=== PATIENT | male | born 1970 | race Two or more races ===

== ENCOUNTER 2020-09-08 15:02 | Emergency (ER) | payer OTHER ==
[~2020-09-08] VITALS: Ht 165.1 cm; Wt 83.5 kg
== END 2020-09-09 01:18 | disposition home or self-care (01) ==
LOC: ER 15:02
DX: K52.1 Toxic gastroenteritis and colitis (principal); T36.8X5A Adverse effect of other systemic antibiotics, initial encounter; K57.92 Diverticulitis of intestine, part unspecified, without perforation or abscess without bleeding; Z03.818 Encounter for observation for suspected exposure to other biological agents ruled out

== ENCOUNTER 2020-11-30 00:10 | Inpatient (IN) | payer OTHER ==
[~2020-11-30] VITALS: Ht 170.2 cm; Wt 83.0 kg
== END 2020-12-03 14:25 | disposition home or self-care (01) | DRG 379 ==
LOC: ER 00:10 → SEC-K 09:32 → MEDI 12-01 13:01
PROVIDERS: ADMIT Internal Medicine; ATTEND Internal Medicine
DX: K57.33 Diverticulitis of large intestine without perforation or abscess with bleeding (principal); K52.9 Noninfective gastroenteritis and colitis, unspecified; K62.5 Hemorrhage of anus and rectum; Z20.822 Contact with and (suspected) exposure to COVID-19

== ENCOUNTER 2023-09-19 13:50 | Outpatient (CLI) | payer OTHER | END 2023-09-19 14:01 | disposition home or self-care (01) | LOC: TOM 13:50 | PROVIDERS: ATTEND General Practice | DX: R19.00 Intra-abdominal and pelvic swelling, mass and lump, unspecified site (principal) ==

== ENCOUNTER 2024-01-06 11:37 | Outpatient (CLI) | payer OTHER | END 2024-01-06 11:41 | disposition home or self-care (01) | LOC: RAD 11:37 | PROVIDERS: ATTEND General Practice | DX: M54.50 Low back pain, unspecified (principal) ==

== ENCOUNTER 2025-01-04 13:11 | Outpatient (CLI) | payer OTHER | END 2025-01-04 13:18 | disposition home or self-care (01) | LOC: MRI 13:11 | PROVIDERS: ATTEND General Practice | DX: M47.897 Other spondylosis, lumbosacral region (principal) | CPT/HCPCS: 72148 ==